=== PATIENT | female | born 1960 | race Caucasian/White ===

== ENCOUNTER → 2018-10-28 | Outpatient (CLI) | payer OTHER | END | disposition home or self-care (01) | LOC: RAH 13:23 | PROVIDERS: ATTEND Family Medicine | DX: Z12.31 Encounter for screening mammogram for malignant neoplasm of breast (principal) | CPT/HCPCS: 77067 ==

== ENCOUNTER 2019-03-17 19:38 | Emergency (ER) | payer OTHER ==
[2019-03-17] MEDS ORDERED: MORPHINE SULFATE 4 MG/1ML SYG ONE (20:55)
[2019-03-17] MEDS ORDERED: KETOROLAC TROMETHAMINE 30MG/ML ONE (20:55)
[2019-03-17 21:10] LABS: BASOPHILS % (AUTO) 1.1 % (0.0-5.0); EOSINOPHILS % (AUTO) 1.9 % (0.0-8.0); HEMATOCRIT 39.4 % (36-48); LYMPHOCYTES % (AUTO) 35.4 % (21.0-51.0); MEAN CORPUSCULAR HEMOGLOBIN 32.2 pg (27.0-33.0); MEAN CORPUSCULAR HGB CONC 34.5 g/dL (32.0-36.0); MEAN CORPUSCULAR VOLUME 93.2 fL (79-99); MONOCYTES % (AUTO) 6.6 % (3.0-13.0); NUCLEATED RED BLOOD CELLS 0.1 % (0.0-0.19); PLATELET COUNT (AUTO) 194 K/uL (130-400); RED BLOOD CELL COUNT(AUTO) 4.23 MIL/uL (4.00-5.50); RED CELL DISTRIBUTION WIDTH 13.9 % (11.0-15.5); WHITE BLOOD COUNT (AUTO) 7.7 K/uL (4.8-10.8)
[2019-03-17 21:25] LABS: POTASSIUM 3.7 mmol/L (3.5-5.1)
[2019-03-17 21:30] LABS: ALBUMIN 3.4 g/dL (3.5-5.0); BILIRUBIN,TOTAL 0.6 mg/dL (0.2-1.0); TOTAL PROTEIN, SERUM 7.5 g/dL (6.0-8.3)
[2019-03-17 21:49] LABS: APPEARANCE,URINE Clear (CLEAR); BILIRUBIN,URINE Negative (NEGATIVE); COLOR,URINE Yellow (YELLOW); GLUCOSE, URINE (UA) Negative (NEGATIVE); KETONES,URINE Negative (NEGATIVE); LEUKOCYTE ESTERASE ,URINE Negative (NEGATIVE); NITRATE,URINE Negative (NEGATIVE); OCCULT BLOOD,URINE Large (NEGATIVE); PROTEIN,URINE Negative (NEGATIVE); UROBILINOGEN,URINE 0.2 mg/dL (0.2-1.0)
[2019-03-17 21:57] LABS: BACTERIA,URINE Few /HPF (None Seen); WBC,URINE 0-1 /HPF (0-1)
[2019-03-17 21:58] LABS: MUCUS,URINE None Seen LPF (None Seen)
== END 2019-03-17 22:38 | disposition home or self-care (01) ==
LOC: EDH 19:38
DX: S39.012A Strain of muscle, fascia and tendon of lower back, initial encounter (principal); I10 Essential (primary) hypertension; E78.00 Pure hypercholesterolemia, unspecified; K74.60 Unspecified cirrhosis of liver; Z90.49 Acquired absence of other specified parts of digestive tract; Z90.710 Acquired absence of both cervix and uterus; Z87.891 Personal history of nicotine dependence; X58.XXXA Exposure to other specified factors, initial encounter; Y93.89 Activity, other specified; Y92.89 Other specified places as the place of occurrence of the external cause; Y99.8 Other external cause status
CPT/HCPCS: 36415; 72125; 72128; 72131; 74176; 80053; 81001; 83690; 84484; 85025; 93005; 96374; 96375; 99285; J1885; J2270

== ENCOUNTER 2021-10-14 19:46 | Emergency (ER) | payer OTHER ==
[~2021-10-14] VITALS: Ht 154.9 cm; Wt 53.1 kg
[2021-10-14] MEDS ORDERED: KETOROLAC 30MG VIAL (30MG/ML) IM ONE (21:00)
[2021-10-14 23:24] VITALS: BP 149/65
== END 2021-10-14 23:38 | disposition home or self-care (01) ==
LOC: EDH 19:46
DX: S33.5XXA Sprain of ligaments of lumbar spine, initial encounter (principal); S40.011A Contusion of right shoulder, initial encounter; S80.01XA Contusion of right knee, initial encounter; S09.90XA Unspecified injury of head, initial encounter; I10 Essential (primary) hypertension; Z79.1 Long term (current) use of non-steroidal anti-inflammatories (NSAID); W18.39XA Other fall on same level, initial encounter; Y93.89 Activity, other specified; Y92.89 Other specified places as the place of occurrence of the external cause; Y99.8 Other external cause status
CPT/HCPCS: 70450; 72100; 73030; 73562; 96372; 99284; J1885

== ENCOUNTER 2022-12-10 15:34 | Emergency (ER) | payer BC, OTHER ==
[~2022-12-10] VITALS: Ht 154.9 cm; Wt 59.4 kg
[2022-12-10] MEDS ORDERED: KETOROLAC 30MG VIAL (30MG/ML) IVP ONE (16:30)
[2022-12-10] MEDS ORDERED: METOCLOPRAMIDE 10 MG/2 ML VIAL IVP ONE (16:30)
[2022-12-10] MEDS ORDERED: FAMOTIDINE 20MG VIAL IV ONE (16:30)
[2022-12-10] MEDS ORDERED: 0.9%NACL 1000ML 1,000 ML IV ONE (17:30)
[2022-12-10 17:37] LABS: BASOPHILS % (AUTO) 0.8 % (0.0-5.0); EOSINOPHILS % (AUTO) 1.1 % (0.0-8.0); HEMATOCRIT 33.1 % (36-48); LYMPHOCYTES % (AUTO) 26.6 % (21.0-51.0); MEAN CORPUSCULAR HEMOGLOBIN 29.1 pg (27.0-33.0); MEAN CORPUSCULAR HGB CONC 31.4 g/dL (32.0-36.0); MEAN CORPUSCULAR VOLUME 92.7 fL (79-99); MONOCYTES % (AUTO) 8.4 % (3.0-13.0); NEUTROPHILS % (AUTO) 62.6 % (40.0-77.0); PLATELET COUNT (AUTO) 234 K/uL (130-400); RED BLOOD CELL COUNT(AUTO) 3.57 MIL/uL (4.00-5.50); RED CELL DISTRIBUTION WIDTH 13.5 % (11.0-15.5); WHITE BLOOD COUNT (AUTO) 6.5 K/uL (4.8-10.8)
[2022-12-10 17:57] LABS: POTASSIUM 3.6 mmol/L (3.5-5.1)
[2022-12-10 18:06] LABS: ALBUMIN 2.4 g/dL (3.5-5.0); TOTAL PROTEIN, SERUM 7.1 g/dL (6.0-8.3)
[2022-12-10] MEDS ORDERED: MELO-106 PO (18:55)
[2022-12-10 19:53] VITALS: BP 146/64; PULSE 74; RESP 16
== END 2022-12-10 20:01 | disposition home or self-care (01) ==
LOC: EDH 15:34
DX: S46.911A Strain of unspecified muscle, fascia and tendon at shoulder and upper arm level, right arm, initial encounter (principal); F32.A Depression, unspecified; E78.00 Pure hypercholesterolemia, unspecified; Z90.49 Acquired absence of other specified parts of digestive tract; I10 Essential (primary) hypertension; W18.39XA Other fall on same level, initial encounter; Y93.89 Activity, other specified; Y92.89 Other specified places as the place of occurrence of the external cause; Y99.8 Other external cause status
CPT/HCPCS: 99285; 70450; 96374; 71045; 96375; 96361; 82550; 84484; 80053; 85025; 36415; 72170; 73030; 72125; 70486; J3490; J7030; J1885; J2765

== ENCOUNTER 2022-12-31 12:30 | Emergency (ER) | payer BC ==
[~2022-12-31] VITALS: Ht 154.9 cm; Wt 68.0 kg
[~2022-12-31 12:30] MED LIST: MELO-106 PO
[2022-12-31 13:55] LABS: BASOPHILS # (AUTO) 0.04 K/uL (0.00-0.20); BASOPHILS % (AUTO) 0.8 % (0.0-5.0); EOSINOPHILS # (AUTO) 0.18 K/uL (0.00-0.70); EOSINOPHILS % (AUTO) 3.8 % (0.0-8.0); IMMATURE GRANULOCYTE ABSOLUTE 0.01 K/uL (0-1); LYMPHOCYTES # (AUTO) 1.8 K/uL (1.0-4.8); LYMPHOCYTES % (AUTO) 38.5 % (21.0-51.0); MEAN CORPUSCULAR HEMOGLOBIN 29.4 pg (27.0-33.0); MEAN CORPUSCULAR HGB CONC 31.6 g/dL (32.0-36.0); MONOCYTES # (AUTO) 0.4 K/uL (0.1-1.0); MONOCYTES % (AUTO) 8.2 % (3.0-13.0); NEUTROPHILS # (AUTO) 2.3 K/uL (1.8-7.7); NEUTROPHILS % (AUTO) 48.5 % (40.0-77.0); PLATELET COUNT (AUTO) 140 K/uL (130-400); RED BLOOD CELL COUNT(AUTO) 3.44 MIL/uL (4.00-5.50); RED CELL DISTRIBUTION WIDTH 14.4 % (11.0-15.5); WHITE BLOOD COUNT (AUTO) 4.8 K/uL (4.8-10.8)
[2022-12-31 14:01] LABS: CREATININE 0.9 mg/dL (0.5-1.5); POTASSIUM 3.4 mmol/L (3.5-5.1)
[2022-12-31 14:06] LABS: ALBUMIN 3.1 g/dL (3.5-5.0); BILIRUBIN,TOTAL 0.5 mg/dL (0.2-1.0); TOTAL PROTEIN, SERUM 6.8 g/dL (6.0-8.3)
[2022-12-31 14:25] LABS: B-TYPE NATRIURETIC PEPTIDE 63 pg/mL (0-100)
[2022-12-31 15:00] LABS: ADD UA MICROSCOPIC YES; APPEARANCE,URINE CLEAR (CLEAR); BILIRUBIN,URINE NEGATIVE (NEGATIVE); COLOR,URINE LIGHT-YELLOW (YELLOW); GLUCOSE, URINE (UA) NEGATIVE (NEGATIVE); KETONES,URINE NEGATIVE (NEGATIVE); LEUKOCYTE ESTERASE ,URINE NEGATIVE Leu/uL (NEGATIVE); NITRATE,URINE NEGATIVE (NEGATIVE); OCCULT BLOOD,URINE NEGATIVE (NEGATIVE); PH,URINE 6.5 (5.0-8.0); PROTEIN,URINE 10 mg/dL (NEGATIVE); UROBILINOGEN,URINE 0.2 mg/dL (0.2-1.0)
[2022-12-31 15:01] LABS: MUCUS,URINE RARE LPF (None Seen); SQUAMOUS EPITHELIAL CELL,UR RARE /HPF (0-2)
[2022-12-31] MEDS ORDERED: FUROSEMIDE 20 MG TABLET PO ONE (15:40)
[2022-12-31] MEDS ORDERED: KCL 20 MEQ ERTAB PO ONE (15:40)
[2022-12-31] MEDS ORDERED: FURO20TA4 PO (17:15)
[2022-12-31] MEDS ORDERED: POTA-202 PO (17:15)
[2022-12-31 17:25] VITALS: BP 144/46; PULSE 66; RESP 18; O2SAT 96
== END 2022-12-31 17:26 | disposition home or self-care (01) ==
LOC: EDH 12:30
DX: E87.6 Hypokalemia (principal); M79.89 Other specified soft tissue disorders; F17.200 Nicotine dependence, unspecified, uncomplicated; Z79.1 Long term (current) use of non-steroidal anti-inflammatories (NSAID); Z90.49 Acquired absence of other specified parts of digestive tract
CPT/HCPCS: 36415; 71045; 80053; 81001; 83880; 84484; 85025; 93005; 93970

== ENCOUNTER 2023-04-03 23:21 | Emergency (ER) | payer BC, OTHER ==
[~2023-04-03] VITALS: Ht 154.9 cm; Wt 63.5 kg
[~2023-04-03 23:21] MED LIST changes: +FURO20TA4 PO; +POTA-202 PO
[2023-04-04] MEDS ORDERED: BENZONATATE 100 MG CAPSULE PO ONE (02:00)
[2023-04-04] MEDS ORDERED: LACTATED RINGERS 1000ML 1,000 ML IV ONE (02:00)
[2023-04-04] MEDS ORDERED: ALBUTEROL 0.083% 2.5 MG/3 ML INH IH ONE (02:00)
[2023-04-04 02:06] VITALS: PULSE 77
[2023-04-04 03:01] LABS: RAPID GROUP A STREP negative (NEGATIVE)
[2023-04-04 03:06] LABS: BASOPHILS # (AUTO) 0.03 K/uL (0.00-0.20); BASOPHILS % (AUTO) 0.3 % (0.0-5.0); EOSINOPHILS # (AUTO) 0.02 K/uL (0.00-0.70); EOSINOPHILS % (AUTO) 0.2 % (0.0-8.0); HEMATOCRIT 33.1 % (36-48); IMMATURE GRANULOCYTE ABSOLUTE 0.19 K/uL (0-1); LYMPHOCYTES # (AUTO) 2.2 K/uL (1.0-4.8); LYMPHOCYTES % (AUTO) 20.9 % (21.0-51.0); MEAN CORPUSCULAR HGB CONC 33.2 g/dL (32.0-36.0); MEAN CORPUSCULAR VOLUME 90.2 fL (79-99); MONOCYTES # (AUTO) 1.1 K/uL (0.1-1.0); MONOCYTES % (AUTO) 10.5 % (3.0-13.0); NEUTROPHILS # (AUTO) 6.9 K/uL (1.8-7.7); NEUTROPHILS % (AUTO) 66.3 % (40.0-77.0); PLATELET COUNT (AUTO) 261 K/uL (130-400); RED BLOOD CELL COUNT(AUTO) 3.67 MIL/uL (4.00-5.50); RED CELL DISTRIBUTION WIDTH 14.3 % (11.0-15.5); WHITE BLOOD COUNT (AUTO) 10.5 K/uL (4.8-10.8)
[2023-04-04 03:07] LABS: SARS-CoV-2, RNA, NAAT NEGATIVE SARS CoV-2 (NEGATIVE)
[2023-04-04 03:08] LABS: APPEARANCE,URINE CLOUDY (CLEAR); BILIRUBIN,URINE NEGATIVE (NEGATIVE); COLOR,URINE LIGHT-YELLOW (YELLOW); GLUCOSE, URINE (UA) NEGATIVE (NEGATIVE); KETONES,URINE NEGATIVE (NEGATIVE); LEUKOCYTE ESTERASE ,URINE 250 Leu/uL (NEGATIVE); NITRATE,URINE 2+ (NEGATIVE); OCCULT BLOOD,URINE SMALL (NEGATIVE); PH,URINE 5.5 (5.0-8.0); PROTEIN,URINE 30 mg/dL (NEGATIVE); UROBILINOGEN,URINE 0.2 mg/dL (0.2-1.0)
[2023-04-04 03:09] LABS: ADD UA MICROSCOPIC YES
[2023-04-04 03:11] LABS: BACTERIA,URINE MANY /HPF (None Seen); MUCUS,URINE RARE LPF (None Seen); SQUAMOUS EPITHELIAL CELL,UR RARE /HPF (0-2); WBC,URINE 51-100 /HPF (0-1)
[2023-04-04 03:11] LABS: INFLUENZA TYPE A Negative For Type A (NEGATIVE); INFLUENZA TYPE B Negative For Type B (NEGATIVE)
[2023-04-04 03:28] LABS: ALBUMIN 2.4 g/dL (3.5-5.0); BILIRUBIN,TOTAL 0.4 mg/dL (0.2-1.0); TOTAL PROTEIN, SERUM 6.5 g/dL (6.0-8.3)
[2023-04-04 03:29] LABS: POTASSIUM 2.7 mmol/L (3.5-5.1)
[2023-04-04] MEDS ORDERED: ACETAMINOPHEN 325 MG TAB PO ONE (03:30)
[2023-04-04 03:32] LABS: INR 1.07 (0.85-1.15); PROTHROMBIN TIME 12.4 SEC (9.6-11.6)
[2023-04-04 03:34] LABS: PARTIAL THROMBOPLASTIN TIME 29.7 SEC (26.3-35.5)
[2023-04-04] MEDS ORDERED: POTASSIUM BICARB/CIT AC 25 MEQ TABLET.EFF PO ONE (04:00)
[2023-04-04] MEDS ORDERED: CEFTRIAXONE 2GM VIAL IVPB ONE (04:00)
[2023-04-04 04:04] VITALS: TEMP 99.1
[2023-04-04 04:47] LABS: MAGNESIUM 1.8 mg/dL (1.80-2.40); THYROID STIMULATING HORMONE 0.46 uIU/mL (0.36-3.74)
[2023-04-04 06:00] VITALS: BP 135/44
[2023-04-04 06:03] LABS: POTASSIUM 3.2 mmol/L (3.5-5.1)
[2023-04-04 06:06] VITALS: PULSE 90; RESP 18; O2SAT 99
[2023-04-04] MEDS ORDERED: PHEN-847 PO (06:09)
[2023-04-04] MEDS ORDERED: BENZ-39 PO (06:09)
[2023-04-04] MEDS ORDERED: ALBUHFA IH (06:09)
[2023-04-04] MEDS ORDERED: CEPH500B PO (06:09)
[2023-04-04] MEDS ORDERED: AUD IH (06:09)
== END 2023-04-04 06:30 | disposition home or self-care (01) ==
LOC: EDH 23:21
DX: N39.0 Urinary tract infection, site not specified (principal); B34.9 Viral infection, unspecified; J40 Bronchitis, not specified as acute or chronic; E87.6 Hypokalemia; I10 Essential (primary) hypertension; M19.90 Unspecified osteoarthritis, unspecified site; F17.200 Nicotine dependence, unspecified, uncomplicated; Z79.1 Long term (current) use of non-steroidal anti-inflammatories (NSAID); Z79.899 Other long term (current) drug therapy; Z20.822 Contact with and (suspected) exposure to COVID-19
CPT/HCPCS: 99284; 87635; 84443; 82550; 83735; 84484; 80053; 83690; 85025; 85610; 85730; 87040 ×2; 87077 ×2; 87088; 87186 ×2; 87880; 87804 ×2; 83605; 81001; 36415; 71045; 93005; 80048; C9803; J7120; J0696

== ENCOUNTER 2023-07-07 12:04 | Emergency (ER) | payer OTHER ==
[~2023-07-07] VITALS: Ht 152.4 cm; Wt 64.9 kg
[~2023-07-07 12:04] MED LIST changes: +ALBUHFA IH; +AUD IH; +BENZ-39 PO; +CEPH500B PO; +PHEN-847 PO
[2023-07-07] MEDS ORDERED: M-SA237L TP (15:43)
[2023-07-07] MEDS ORDERED: IBUP-2070 PO (15:43)
[2023-07-07 16:26] VITALS: BP 168/62; PULSE 78; RESP 18; O2SAT 100
[2023-07-07] MEDS: KETOROLAC 30MG VIAL (30MG/ML) IM ONE (16:29)
== END 2023-07-07 16:39 | disposition home or self-care (01) ==
LOC: EDH 12:04
DX: S80.211A Abrasion, right knee, initial encounter (principal); S80.01XA Contusion of right knee, initial encounter; S20.211A Contusion of right front wall of thorax, initial encounter; M17.11 Unilateral primary osteoarthritis, right knee; M19.90 Unspecified osteoarthritis, unspecified site; J45.909 Unspecified asthma, uncomplicated; E78.00 Pure hypercholesterolemia, unspecified; I10 Essential (primary) hypertension; Z90.49 Acquired absence of other specified parts of digestive tract; W18.39XA Other fall on same level, initial encounter; Y93.89 Activity, other specified; Y92.89 Other specified places as the place of occurrence of the external cause; Y99.8 Other external cause status
CPT/HCPCS: 99283; 71045; 73560; 96372; J1885

== ENCOUNTER 2024-02-04 15:05 | Emergency (ER) | payer OTHER ==
[~2024-02-04] VITALS: Ht 162.6 cm; Wt 66.2 kg
[~2024-02-04 15:05] MED LIST changes: +IBUP-2070 PO; +M-SA237L TP
[2024-02-04] MEDS: ketOROlac 60 MG VIAL (30MG/ML) IM ONE (16:22)
[2024-02-04 16:44] LABS: HEMATOCRIT 34.1 % (36-48); MEAN CORPUSCULAR HEMOGLOBIN 29.5 pg (27.0-33.0); MEAN CORPUSCULAR HGB CONC 32.3 g/dL (32.0-36.0); MEAN CORPUSCULAR VOLUME 91.4 fL (79-99); PLATELET COUNT (AUTO) 194 K/uL (130-400); RED BLOOD CELL COUNT(AUTO) 3.73 MIL/uL (4.00-5.50); RED CELL DISTRIBUTION WIDTH 13.4 % (11.0-15.5); WHITE BLOOD COUNT (AUTO) 5.7 K/uL (4.8-10.8)
[2024-02-04 16:48] LABS: BASOPHILS # (AUTO) 0.06 K/uL (0.00-0.20); BASOPHILS % (AUTO) 1.1 % (0.0-5.0); EOSINOPHILS # (AUTO) 0.12 K/uL (0.00-0.70); EOSINOPHILS % (AUTO) 2.2 % (0.0-8.0); IMMATURE GRANULOCYTE ABSOLUTE 0.01 K/uL (0-1); LYMPHOCYTES # (AUTO) 1.8 K/uL (1.0-4.8); LYMPHOCYTES % (AUTO) 32.6 % (21.0-51.0); MONOCYTES # (AUTO) 0.4 K/uL (0.1-1.0); MONOCYTES % (AUTO) 7.7 % (3.0-13.0); NEUTROPHILS # (AUTO) 3.1 K/uL (1.8-7.7); NEUTROPHILS % (AUTO) 56.2 % (40.0-77.0)
[2024-02-04 16:50] LABS: CREATININE 0.9 mg/dL (0.5-1.0); POTASSIUM 3.1 mmol/L (3.5-5.1)
[2024-02-04 17:26] VITALS: BP 131/70; PULSE 74; RESP 18; TEMP 98.1; O2SAT 97
[2024-02-04] MEDS: KCL 20 MEQ ERTAB PO ONE (17:38)
[2024-02-04] MEDS ORDERED: MELO-106 PO (17:48)
== END 2024-02-04 18:05 | disposition home or self-care (01) ==
LOC: EDH 15:05
DX: M25.552 Pain in left hip (principal); M25.562 Pain in left knee; E87.6 Hypokalemia; R00.1 Bradycardia, unspecified; M17.0 Bilateral primary osteoarthritis of knee; W18.39XA Other fall on same level, initial encounter; Y93.89 Activity, other specified; Y92.89 Other specified places as the place of occurrence of the external cause; Y99.8 Other external cause status
CPT/HCPCS: 99283; 80048; 85025; 82948; 36415; 73565; 72170; 96372; 93005; J1885; 73560

== ENCOUNTER 2024-04-08 12:08 | Emergency (ER) | payer OTHER ==
[~2024-04-08] VITALS: Ht 152.4 cm; Wt 55.3 kg
[2024-04-08] MEDS: HYDROcodone/APAP 5/325 1 TAB TABLET PO ONE (12:59)
[2024-04-08] MEDS: ibuPROFEN 600 MG TABLET PO ONE (12:59)
--- NOTE | 2024-04-08 13:42 | ERN ---
General Chief Complaint: Knee Injury/Swelling Stated Complaint: FELL 2X, RIGHT LEG SWELLING, LEFT LEG PAIN Time Seen by MD: 12:10 History of Present Illness Initial Comments 64-year-old female presents for right knee pain and right hip pain after a mechanical fall. Patient reports she tripped while walking to the store. She uses walker. She landed on her right knee. She reports right knee pain and also right hip pain. She is ambulatory although she has not antalgic gait. There is some swelling to the knee. She denies hitting her head or any other injuries. Medical history: Hypertension, neuropathy, anxiety and depression Smoker PCP: [facility] Allergies: Coded Allergies: meloxicam (Unverified Allergy, Unknown, 02/04/24) Home Meds Active Scripts Meloxicam (Meloxicam) 7.5 Mg Tablet, 7.5 MG PO AM for 30 Days, #30 TAB Prov:JULIANA BOO MD 02/04/24 Ibuprofen (Ibuprofen) 600 Mg Tablet, 600 MG PO TID PRN for PAIN, #12 TAB Prov:TOMY JIMÉNEZ 07/07/23 M-Salicy/Aloe Vera/Men/Euc Oil ([place] Aloe Analgesic Liniment) 10 % Liniment, 1 APPL TP BID PRN for MILD PAIN, #237 ML apply to muscles and joints of lower legs as directed Prov:TOMY JIMÉNEZ 07/07/23 Phenazopyridine HCl (Pyridium) 200 Mg Tab, 200 MG PO TIDPC, #6 TAB 0 Refills TAKE WITH FOOD TO PREVENT STOMACH UPSET. Prov:MARY GARCIA Sr., MD 04/04/23 Cephalexin Monohydrate (Keflex) 500 Mg Cap, 500 MG PO QID for 7 Days, #28 CAP 0 Refills Prov:MARY GARCIA Sr., MD 04/04/23 Benzonatate (Tessalon Perles) 100 Mg Cap, 100 MG PO TID for cough, #30 CAP 0 Refills Prov:MARY GARCIA Sr., MD 04/04/23 Albuterol Sulfate (Ventolin Hfa/Proventil Hfa/Proair Hfa) 90 Mcg Puff, 2 PUFF IH Q4H for WHEEZING, #1 INHALER 0 Refills Prov:MARY GARCIA Sr., MD 04/04/23 Albuterol Sulfate (Albuterol Sulfate) 2.5 Mg/0.5 Ml Vial.neb, 2.5 MG IH Q6H for wheezing/sob, #20 INH 0 Refills Prov:MARY GARCIA Sr., MD 04/04/23 Potassium Chloride (Potassium Chloride) 20 Meq Tab.er.prt, 20 MEQ PO DAILY, #5 TAB Prov:DEN WALKER MD 12/31/22 Furosemide (Furosemide) 20 Mg Tablet, 20 MG PO DAILY for swelling in legs, #5 TAB Prov:DEN WALKER MD 12/31/22 Meloxicam (Meloxicam) 7.5 Mg Tablet, 7.5 MG PO DAILY, #30 TAB 2 Refills Prov:MARY GARCIA Sr., MD 12/10/22 Past Medical History Past Medical History: Hypertension Medical History Other: NEUROPATHY Past Surgical History: None Surgical History Other: KNEE SX Social History Social History: Smokers, Other ROS Dictation CONSTITUTIONAL: No chills, no fever, no weakness, no diaphoresis, no malaise. HEAD/FACE: No signs of trauma. EENT: No eye pain, no blurred vision, no tearing, no double vision, no ear pain, no ear discharge, no nose pain, no nasal congestion, no throat pain, no throat swelling, no mouth pain. RESPIRATORY: No cough, no orthopnea, no SOB, no stridor, no wheezing. CARDIOVASCULAR: No chest pain, no edema, no palpitations, no syncope. GASTROINTESTINAL/ABDOMINAL: No abdominal pain, no constipation, no diarrhea, no nausea, no vomiting. GENITOURINARY: No abnormal discharge, no dysuria, no frequent urination, no hematuria. No complaints of pain in the genitals. MUSCULOSKELETAL: Right knee pain INTEGUMENTARY: No change in color, no change in hair/nails, no dryness, no lesion, no lumps, no rash. NEUROLOGICAL/PSYCH: No anxiety, not depressed, no emotional problem, no headache, no numbness, no pre-existing deficit, no history of seizures, no tremors, no weakness. HEMATOLOGIC/LYMPHATIC: Not anemic, no history of blood clots, no apparent bleeding, no bruising, glands not swollen. All Systems Negative, Except as Noted. Physical Exam Physical Exam Dictation VITAL SIGNS: Reviewed. GENERAL APPEARANCE: Alert, oriented x3, no acute distress, obese. HEAD AND FACE: Non-traumatic. EYES: PERRL, pink conjunctivas, eyelid no trauma, anterior chamber clear. EARS: Pinnas intact and no signs of trauma or erythema. Ear canals clear and no discharge. TMs no erythema. NOSE: No discharge, no bleeding. OROPHARYNX: Mouth normal, teeth no caries, tongue pink. Pharynx clear, no erythema. Tonsils no exudates, no abscesses noted. Mucous membrane moist. NECK: Supple, non-tender, no thyromegaly, no masses, no JVD, no bruits. BREAST: Deferred. CHEST: No tenderness, no crepitus, no paradoxical movement, no retractions. LUNGS: Clear, well-ventilated, symmetric, no rales, no wheezing, no rhonchi, no stridor, good breath sounds bilaterally. HEART: Regular rate, regular rhythm, no murmur, no gallops. VASCULAR: No peripheral edema. ABDOMEN: Soft, positive bowel sounds, nondistended, no guarding, nontender, no rebound, no masses no hepatomegaly, no splenomegaly, no Monahan's sign, no hernias. RECTAL: Deferred. GENITAL: Deferred. NEUROLOGICAL: Normal speech, gross motor function intact, gross sensory funct ion intact. MUSCULOSKELETAL: Right knee swelling, full range of motion, neurovascularly intact distally, ambulatory with antalgic gait EXTREMITIES: Nontender, full range of motion. SKIN: Color pink, dry, no turgor, no rash, no lacerations, no abrasions, no contusions. LYMPHATICS: Deferred. MDM CC: R knee pain, hip pain s/p fall Comorbidities: uses a walker, neuropathy, anxiety Ddx: fracutre, MSK pain No labs indicated. NV intact. Ambulatory with antalgic gait. Uses a walker. Able to walk around the ER. Right knee x-ray (independently interpreted by me): no acute fractures, DJD. Pelvis x-ray (independently interpreted by me): no acute fractures, DJD. Treatment in ED: PO ibuprofen & [place]. Pain improved. Likely MSK pain. Will DC w/ RICE, ibuprofne, tylenol. AMY wrap. PCP f/u. ED Course Orders Procedure Category Date Status Time Knee 3vws Rt RAD 04/08/24 Resulted 12:39 Hip Unilat 2-3vw Right RAD 04/08/24 Resulted 12:39 Hydrocodone/Apap PHA 04/08/24 Complete 5/325 ([place] 5/325mg) 13:00 Ibuprofen 600 Mg PHA 04/08/24 Complete Tablet (Motrin) 13:00 Current Medications Medications (Trade) Dose Ordered Sig/Romy Route PRN Reason Start Time Stop Time Status Last Admin Dose Admin Acetaminophen/ Hydrocodone Bitart (NORco 5/325MG) 1 tab ONCE ONCE PO 04/08/24 13:00 04/08/24 13:01 DC 04/08/24 12:59 Ibuprofen (moTRIN) 600 mg ONCE ONCE PO 04/08/24 13:00 04/08/24 13:01 DC 04/08/24 12:59 Vital Signs Date Time Temp Pulse Resp B/P (MAP) Pulse Ox O2 Delivery O2 Flow Rate FiO2 04/08/24 12:28 97.9 85 20 162/68 95 Room Air DX & DISP Disposition: Discharge Departure Impression: Primary Impression: Right knee injury Condition: Stable Scripts Acetaminophen (Acetaminophen Extra Strength) 500 Mg Tablet 1000 MG PO QID for pain, #20 TAB Prov: INDY GOOD DO 04/08/24 Ibuprofen (Ibuprofen) 600 Mg Tablet 1 TAB PO TID for pain for 10 Days, #30 TAB 0 Refills with food Prov: INDY GOOD DO 04/08/24 Additional Instructions: The x-rays do not show any fractures. You do have some degenerative disease (age related arthritis) on your knee x-ray. Your pelvis x-ray is unremarkable. You likely have musculoskeletal or soft tissue injury from the fall. Please continue with all your home medications. For pain you can alternate 600 mg of ibuprofen or 1000 mg of Tylenol every 4 hours as needed. I also recommend that you rest the knee as much as possible. Apply ice for 20 minutes twice per day. Use a compression device such as a knee brace or an Amy wrap. Elevate your knee as much as possible. Please follow up with your primary doctor. You may need further studies or treatment. Please refer to the emergency department if you have any concerns. Referrals: SELF,REFERRAL (PCP) INDY GOOD DO Apr 08, 2024 13:41
--- NOTE | 2024-04-08 15:17 | HMCIMG ---
HIP UNILAT 2-3VW RIGHT REASON: fall COMPARISON: None TECHNIQUE: 3 views were obtained of the pelvis and right hip. FINDINGS: Bones of the pelvis appear normal. There are no fractures. SI joints appear normal as do hip joint spaces. Proximal femur appears normal as well. Soft tissues are unremarkable. IMPRESSION: 1. Normal views of the pelvis and right hip.
--- NOTE | 2024-04-08 15:18 | HMCIMG ---
KNEE 3VWS RT REASON: fall TECHNIQUE: 3 views were obtained. FINDINGS: There is severe lateral joint space osteoarthritis. Medial and patellofemoral joint spaces appear better preserved. There are no fractures. Soft tissues appear unremarkable. IMPRESSION: 1. Severe lateral joint space osteoarthritis with mild valgus angulation.
[2024-04-08] MEDS ORDERED: ACET-2123 PO (15:23)
[2024-04-08] MEDS ORDERED: IBUP-2070 PO (15:23)
[2024-04-08 15:28] VITALS: BP 148/78; PULSE 78; RESP 18; TEMP 97.9; O2SAT 96
[2024-04-08] MEDS ORDERED: ACET-2079 PO (15:51)
== END 2024-04-08 15:56 | disposition home or self-care (01) ==
LOC: EDH 12:08
DX: S89.81XA Other specified injuries of right lower leg, initial encounter (principal); M25.551 Pain in right hip; G62.9 Polyneuropathy, unspecified; F41.9 Anxiety disorder, unspecified; I10 Essential (primary) hypertension; F17.200 Nicotine dependence, unspecified, uncomplicated; Z79.1 Long term (current) use of non-steroidal anti-inflammatories (NSAID); Z79.899 Other long term (current) drug therapy; Z88.8 Allergy status to other drugs, medicaments and biological substances; W01.0XXA Fall on same level from slipping, tripping and stumbling without subsequent striking against object, initial encounter; Y93.01 Activity, walking, marching and hiking; Y92.89 Other specified places as the place of occurrence of the external cause; Y99.8 Other external cause status
CPT/HCPCS: 73502; 73562; 99283

== ENCOUNTER → 2024-09-09 | Outpatient (CLI) | payer OTHER ==
[~2024-09-09] MED LIST changes: +ACET-2079 PO; +ACET-2123 PO
== END | disposition home or self-care (01) ==
LOC: RAH 15:12
PROVIDERS: ATTEND Physician Assistant
DX: Z12.31 Encounter for screening mammogram for malignant neoplasm of breast (principal)
CPT/HCPCS: 77067

== ENCOUNTER 2024-09-11 14:51 | Emergency (ER) | payer OTHER ==
[~2024-09-11] VITALS: Ht 152.4 cm; Wt 83.9 kg
[2024-09-11] MEDS: morPHINE 2 MG SYG IM ONE (15:48)
[2024-09-11 16:04] VITALS: BP 140/56; PULSE 74; RESP 16; TEMP 98.3; O2SAT 100
--- NOTE | 2024-09-11 16:23 | ERN ---
General Chief Complaint: Knee Injury/Swelling Stated Complaint: RT KNEE PAIN/ ARTHRITIS Time Seen by MD: 14:57 Time Seen by Midlevel: 14:57 Source: patient History of Present Illness Initial Comments The patient is a 64-year-old female presenting to the emergency department for evaluation of right knee pain. She reports chronic knee pain and has been told she has extensive osteoarthritis of the right knee. She states it was [id number] and needs surgery. Today she was requesting to be admitted so we can performed surgery on her. Denies any other symptoms. Denies any fall. Allergies: Coded Allergies: meloxicam (Unverified Allergy, Unknown, 02/04/24) Home Meds Active Scripts Acetaminophen with Codeine (Acetaminophen-Cod #3 Tablet) 300 Mg-30 Mg Tablet, 1 TAB PO Q6HPRN PRN for pain for 5 Days, #20 TAB 0 Refills Prov:INDY GOOD DO 04/08/24 Acetaminophen (Acetaminophen Extra Strength) 500 Mg Tablet, 1000 MG PO QID for pain, #20 TAB Prov:INDY GOOD DO 04/08/24 Ibuprofen (Ibuprofen) 600 Mg Tablet, 1 TAB PO TID for pain for 10 Days, #30 TAB 0 Refills with food Prov:INDY GOOD DO 04/08/24 Meloxicam (Meloxicam) 7.5 Mg Tablet, 7.5 MG PO AM for 30 Days, #30 TAB Prov:JULIANA BOO MD 02/04/24 Ibuprofen (Ibuprofen) 600 Mg Tablet, 600 MG PO TID PRN for PAIN, #12 TAB Prov:TOMY JIMÉNEZ 07/07/23 M-Salicy/Aloe Vera/Men/Euc Oil ([place] Aloe Analgesic Liniment) 10 % Liniment, 1 APPL TP BID PRN for MILD PAIN, #237 ML apply to muscles and joints of lower legs as directed Prov:TOMY JIMÉNEZ 07/07/23 Phenazopyridine HCl (Pyridium) 200 Mg Tab, 200 MG PO TIDPC, #6 TAB 0 Refills TAKE WITH FOOD TO PREVENT STOMACH UPSET. Prov:MARY GARCIA Sr., MD 04/04/23 Cephalexin Monohydrate (Keflex) 500 Mg Cap, 500 MG PO QID for 7 Days, #28 CAP 0 Refills Prov:MARY GARCIA Sr., MD 04/04/23 Benzonatate (Tessalon Perles) 100 Mg Cap, 100 MG PO TID for cough, #30 CAP 0 Refills Prov:MARY GARCIA Sr., MD 04/04/23 Albuterol Sulfate (Ventolin Hfa/Proventil Hfa/Proair Hfa) 90 Mcg Puff, 2 PUFF IH Q4H for WHEEZING, #1 INHALER 0 Refills Prov:MARY GARCIA Sr., MD 04/04/23 Albuterol Sulfate (Albuterol Sulfate) 2.5 Mg/0.5 Ml Vial.neb, 2.5 MG IH Q6H for wheezing/sob, #20 INH 0 Refills Prov:MARY GARCIA Sr., MD 04/04/23 Potassium Chloride (Potassium Chloride) 20 Meq Tab.er.prt, 20 MEQ PO DAILY, #5 TAB Prov:DEN WALKER MD 12/31/22 Furosemide (Furosemide) 20 Mg Tablet, 20 MG PO DAILY for swelling in legs, #5 TAB Prov:DEN WALKER MD 12/31/22 Meloxicam (Meloxicam) 7.5 Mg Tablet, 7.5 MG PO DAILY, #30 TAB 2 Refills Prov:MARY GARCIA Sr., MD 12/10/22 Past Medical History Past Medical History: Arthritis, GERD, Hypertension Medical History Other: PVD Past Surgical History: Unknown Surgical History Other: KNEE SX Social History Social History: Smokers, Other ROS Dictation CONSTITUTIONAL: Negative except for HPI HEAD/FACE: Negative except for HPI EENT: Negative except for HPI RESPIRATORY: Negative except for HPI GASTROINTESTINAL/ABDOMINAL: Negative except for HPI GENITOURINARY: Negative except for HPI MUSCULOSKELETAL: Negative except for HPI INTEGUMENTARY: Negative except for HPI NEUROLOGICAL/PSYCH: Negative except for HPI HEMATOLOGIC/LYMPHATIC: Negative except for HPI All Systems Negative, Except as noted above. 13 point review of systems assessed and all negative except for above. Physical Exam Physical Exam Dictation PHYSICAL EXAM: GENERAL: alert,, awake oriented x 3 HEENT: EOMI, Sclera non icteric, moist mucosa NECK: Supple, no JVD, trachea midline LUNGS: Clear breath sounds bilaterally. No wheezes HEART: Regular rate and rhythm. Normal S1 and S2, without murmurs ABD: Abdomen soft, nontender. Bowel sounds present EXT: No clubbing or cyanosis, NEURO: Alert and oriented to person, follows commands MDM MDM: The patient is a 64-year-old female presenting to the emergency department for evaluation of right knee pain. She reports chronic knee pain and has been told she has extensive osteoarthritis of the right knee. She states it was [id number] and needs surgery. Today she was requesting to be admitted so we can performed surgery on her. Denies any other symptoms. Denies any fall. Initial vital signs are stable. Patient was in no acute distress. She was full range motion of the right knee. No obvious signs of external trauma. An x-ray was ordered which reveals osteoarthritis of the right knee but no acute fracture or dislocation. Patient was put on a knee immobilizer and will be having to follow up outpatient for further evaluation. Differential diagnosis: Fracture, dislocation, contusion, arthritis There are no social concerns with this patient. Prescription drug management Prescriptions will include: Medical management and examination interpretation discussions were had by me with other qualified healthcare professionals as indicated for the patient's care. ED Course Orders Procedure Category Date Status Time Knee 3vws Rt RAD 09/11/24 Taken 15:30 Morphine 2mg Syg PHA 09/11/24 Complete (Morphine 2mg Syg) 15:30 Knee Immobilizer JACKELYN 09/11/24 In Process 15:30 Current Medications Medications (Trade) Dose Ordered Sig/Romy Route PRN Reason Start Time Stop Time Status Last Admin Dose Admin Morphine Sulfate (morPHINE 2MG SYG) 2 mg ONCE ONCE IM 09/11/24 15:30 09/11/24 15:32 DC 09/11/24 15:48 Vital Signs Date Time Temp Pulse Resp B/P (MAP) Pulse Ox O2 Delivery O2 Flow Rate FiO2 09/11/24 16:04 98.2 74 16 140/56 100 Room Air* 0 21 09/11/24 14:55 98.1 78 16 140/59 99 0 DX & DISP Disposition: Discharge Departure Impression: Primary Impression: Osteoarthritis of right knee Condition: Stable Additional Instructions: Follow up with your primary care doctor for further evaluation. You need to see an study specialist outpatient to potentially schedule surgery. Continue with Tylenol as needed for pain. If you need something stronger you will need to follow up with your PCP to obtain a prescription. Referrals: EMILY LEIGH DO (PCP) I have reviewed the case, and I agree with, Diagnosis and Plan I performed the substantive portion of the visit. I have reviewed and personally made and approve the management plan that is documented in the note by myself or the AN. I acknowledge for responsibility for the patient's ma nagement plan. LI GLASGOW Sep 11, 2024 16:23
--- NOTE | 2024-09-11 16:28 | HMCIMG ---
KNEE 3VWS RT INDICATION: r/o fx TECHNIQUE: KNEE 3VWS RT. FINDINGS AND IMPRESSION: No displaced fracture or dislocation is seen. Correlate clinically. There is mild soft tissue swelling Diffuse osteopenia is seen degrading evaluation of the study. Moderate degenerative changes are seen.
== END 2024-09-11 16:44 | disposition home or self-care (01) ==
LOC: EDH 14:51
DX: M17.11 Unilateral primary osteoarthritis, right knee (principal); K21.9 Gastro-esophageal reflux disease without esophagitis; I10 Essential (primary) hypertension; F17.200 Nicotine dependence, unspecified, uncomplicated; Z79.1 Long term (current) use of non-steroidal anti-inflammatories (NSAID); Z79.899 Other long term (current) drug therapy; Z88.8 Allergy status to other drugs, medicaments and biological substances
CPT/HCPCS: 99283; 29505; 73562; 96372; J2270

== ENCOUNTER 2025-03-01 20:14 | Emergency (ER) | payer OTHER ==
[~2025-03-01] VITALS: Ht 152.4 cm; Wt 61.7 kg
[~2025-03-01 20:14] MED LIST changes: +IBUP-1492 PO; -IBUP-2070 PO
[2025-03-01 20:16] VITALS: BP 164/66; PULSE 69; RESP 20; TEMP 98
--- NOTE | 2025-03-01 20:32 | ERN ---
ED Note History of Present Illness Stated Complaint: C/O PAIN TO LEFT KNEE, LEFT HAND, LEFT ELBOW Chief Complaint: Mechanical Fall Time Seen by MD: 20:19 Dictation: PATIENT IS A 65-YEAR-OLD FEMALE HERE WITH PAIN TO HER LEFT ELBOW HER LEFT KNEE IN HER LEFT PALMAR HAND AFTER A FALL THIS AFTERNOON. SHE STATES SHE WAS WORKING IN HER YD WHEN SHE TRIPPED AND FELL ON HER LEFT SIDE. SHE HAS GOT A ABRASIONS TO THE LEFT ELBOW AND LEFT KNEE, LAST TETANUS SHOT IS MORE THAN FIVE YEARS AGO. SHE CONTINUED TO WORK IN HER YD. SHE IS NOT ON ANY BLOOD THINNERS DID NOT HIT HER HEAD NO LOC AND NO TRAUMA ALERT CRITERIA. HER DAUGHTER BROUGHT HER TO THE HOSPITAL AND SHE STATES SHE WILL TAKE AN UBER RIDE HOME. Allergies: Coded Allergies: meloxicam (Unverified Allergy, Unknown, 02/04/24) Home Meds Active Scripts Acetaminophen with Codeine (Acetaminophen-Cod #3 Tablet) 300 Mg-30 Mg Tablet, 1 TAB PO Q6HPRN PRN for pain for 5 Days, #20 TAB 0 Refills Prov:INDY GOOD DO 04/08/24 Acetaminophen (Acetaminophen Extra Strength) 500 Mg Tablet, 1000 MG PO QID for pain, #20 TAB Prov:INDY GOOD DO 04/08/24 Ibuprofen (Ibuprofen) 600 Mg Tablet, 1 TAB PO TID for pain for 10 Days, #30 TAB 0 Refills with food Prov:INDY GOOD DO 04/08/24 Meloxicam (Meloxicam) 7.5 Mg Tablet, 7.5 MG PO AM for 30 Days, #30 TAB Prov:JULIANA BOO MD 02/04/24 Ibuprofen (Ibuprofen) 600 Mg Tablet, 600 MG PO TID PRN for PAIN, #12 TAB Prov:TOMY JIMÉNEZ 07/07/23 M-Salicy/Aloe Vera/Men/Euc Oil ([place] Aloe Analgesic Liniment) 10 % Liniment, 1 APPL TP BID PRN for MILD PAIN, #237 ML apply to muscles and joints of lower legs as directed Prov:TOMY JIMÉNEZ 07/07/23 Phenazopyridine HCl (Pyridium) 200 Mg Tab, 200 MG PO TIDPC, #6 TAB 0 Refills TAKE WITH FOOD TO PREVENT STOMACH UPSET. Prov:MARY GARCIA Sr., MD 04/04/23 Cephalexin Monohydrate (Keflex) 500 Mg Cap, 500 MG PO QID for 7 Days, #28 CAP 0 Refills Prov:MARY GARCIA Sr., MD 04/04/23 Benzonatate (Tessalon Perles) 100 Mg Cap, 100 MG PO TID for cough, #30 CAP 0 Refills Prov:MARY GARCIA Sr., MD 04/04/23 Albuterol Sulfate (Ventolin Hfa/Proventil Hfa/Proair Hfa) 90 Mcg Puff, 2 PUFF IH Q4H for WHEEZING, #1 INHALER 0 Refills Prov:MARY GARCIA Sr., MD 04/04/23 Albuterol Sulfate (Albuterol Sulfate) 2.5 Mg/0.5 Ml Vial.neb, 2.5 MG IH Q6H for wheezing/sob, #20 INH 0 Refills Prov:MARY GARCIA Sr., MD 04/04/23 Potassium Chloride (Potassium Chloride) 20 Meq Tab.er.prt, 20 MEQ PO DAILY, #5 TAB Prov:DEN WALKER MD 12/31/22 Furosemide (Furosemide) 20 Mg Tablet, 20 MG PO DAILY for swelling in legs, #5 TAB Prov:DEN WALKER MD 12/31/22 Meloxicam (Meloxicam) 7.5 Mg Tablet, 7.5 MG PO DAILY, #30 TAB 2 Refills Prov:MARY GARCIA Sr., MD 12/10/22 Past Medical History Past Medical History: Anxiety, Bipolar, Depression Additional Past Medical Hx: PVD Surgical History: Other Surgical History Other: KNEE SX Social History: Smokers, Other History: Not Applicable RN Note Reviewed/Agreed w/PFSH: Yes Review of System Dictation CONSTITUTIONAL: NEGATIVE EXCEPT FOR HPI HEAD/FACE: NEGATIVE EXCEPT FOR HPI EENT: NEGATIVE EXCEPT FOR HPI RESPIRATORY: NEGATIVE EXCEPT FOR HPI GASTROINTESTINAL/ABDOMINAL: NEGATIVE EXCEPT FOR HPI GENITOURINARY: NEGATIVE EXCEPT FOR HPI MUSCULOSKELETAL: NEGATIVE EXCEPT FOR HPI LEFT ELBOW/LEFT KNEE/LEFT HAND AND PALMAR PAIN. INTEGUMENTARY: NEGATIVE EXCEPT FOR HPI ABRASIONS TO LEFT ELBOW POSTERIOR AND LEFT KNEE NEUROLOGICAL/PSYCH: NEGATIVE EXCEPT FOR HPI HEMATOLOGIC/LYMPHATIC: NEGATIVE EXCEPT FOR HPI ALL SYSTEMS NEGATIVE, EXCEPT NOTED ABOVE. 13 POINT REVIEW OF SYSTEMS ASSESSED AND ALL NEGATIVE EXCEPT FOR ABOVE. Initial Vital Sign VS Vital Signs Date Time Temp Pulse Resp B/P (MAP) Pulse Ox O2 Delivery O2 Flow Rate FiO2 03/01/25 20:16 98.1 69 20 164/66 97 Room Air Physical Exam Dictation VITAL SIGNS REVIEWED GENERAL APPEARANCE: ALERT, ORIENTED X 3, MODERATE ACUTE DISTRESS, WELL DEVELOPED, NOURISHED. HEAD AND FACE: NON-TRAUMATIC. EYES: PERRL, PINK CONJUNCTIVAS, EYELID NO TRAUMA, ANTERIOR CHAMBER WITH ARCUS SENILIS. EARS: PINNAS INTACT AND NO SIGNS OF TRAUMA OR ERYTHEMA EAR CANALS CLEAR AND NO DISCHARGE TM NO ERYTHEMA NOSE: NO DISCHARGE, NO BLEEDING. OROPHARYNX: MOUTH NORMAL, TONGUE PINK, PHARYNX CLEAR,NO ERYTHEMA, TONSILS NO EXUDATES, NO ABSCESSES NOTED, MUCOUS MEMBRANE MOIST NECK: SUPPLE, NON-TENDER, NO THYROMEGALY, NO MASSES, NO JVD, NO BRUITS BREAST:DEFERRED CHEST:NO TENDERNESS, NO CREPITUS, NO PARADOXICAL MOVEMENT, NO RETRACTIONS LUNGS:CLEAR, WELL-VENTILATED, SYMMETRIC, NO RALES, NO WHEEZING, NO RHONCHI, NO STRIDOR, GOOD BREATH SOUNDS BILATERALLY HEART: REGULAR RATE, REGULAR RHYTHM, NO MURMUR, NO GALLOPS VASCULAR: NO PERIPHERAL EDEMA, ABDOMEN: SOFT, POSITIVE BOWEL SOUNDS, NONDISTENDED, NO GUARDING, NONTENDER, NO REBOUND, NO MASSES NO HEPATOMEGALY, NO SPLENOMEGALY, NO MORGAN'S SIGN, NO HERNIAS. RECTAL: DEFERRED GENITAL: DEFERRED NEUROLOGICAL: NORMAL SPEECH, MOTOR FUNCTION INTACT, SENSORY FUNCTION INTACT MUSCULOSKELETAL: NECK NONTENDER, FULL RANGE OF MOTION, BACK NONTENDER, FULL RANGE OF MOTION, EXTREMITIES: TENDERNESS TO LEFT POSTERIOR ELBOW/LEFT LATERAL KNEE, PALMAR HAND. FULL RANGE OF MOTION NOTED ALL EXTREMITIES SKIN: COLOR PINK, ABRASIONS TO LEFT POSTERIOR ELBOW AND LEFT LATERAL KNEE. LYMPHATIC: DEFERRED Results (Laboratory/Radiology) Laboratory/Radiology LEFT SHOULDER X-RAY NEGATIVE LEFT ELBOW NEGATIVE, NO POSTERIOR FAT PAD SIGN LEFT HAND X-RAY NEGATIVE LEFT KNEE X-RAY NEGATIVE EXCEPT FOR DEGENERATIVE CHANGES Labs Reviewed?: Yes ED Course ED Course Orders Procedure Category Date Status Time Elbow Comp 3+Vws Lt RAD 03/01/25 Taken 20:28 Knee 3vws Lt RAD 03/01/25 Taken 20:28 Hand 3+Vws Lt RAD 03/01/25 Taken 20:28 Neomy PHA 03/01/25 Complete Sulf/Bacitra/Polymyxin 20:30 Acetaminophen With PHA 03/01/25 Complete Codeine (Tylenol-Code 20:30 Tetanus,Diphtheria PHA 03/01/25 Complete Tox [Adult] (Diphther 20:30 Shoulder Comp 2+Vws Lt RAD 03/01/25 Taken 21:03 Current Medications Medications (Trade) Dose Ordered Sig/Romy Route PRN Reason Start Time Stop Time Status Last Admin Dose Admin Acetaminophen/ Codeine Phosphate (TYLenol-coDEINE TAB) 2 tab ONCE ONCE PO 03/01/25 20:30 03/01/25 20:32 DC 03/01/25 20:50 Neomycin/ Polymyxin/ Bacitracin (Triple Antibiotic Ointment) 1 appl ONCE ONCE TP 03/01/25 20:30 03/01/25 20:32 DC 03/01/25 21:05 Tetanus/ Diphtheria Toxoids Adsorbed (DiphthERIA-teTANUS TOXOID [ADULT]/ DECAVAC) 0.5 ml ONCE ONCE IM 03/01/25 20:30 03/01/25 20:32 DC 03/01/25 20:51 Vital Signs Date Time Temp Pulse Resp B/P (MAP) Pulse Ox O2 Delivery O2 Flow Rate FiO2 03/01/25 20:16 98.1 69 20 164/66 97 Room Air 2145/X-RAYS OF LEFT SHOULDER ELBOW LEFT HAND AND LEFT KNEE ON NEGATIVE EXCEPT FOR DEGENERATIVE CHANGES ONLY. PATIENT DISCHARGED HOME TO FOLLOW UP WITH YOUR PRIMARY CARE DOCTOR NEXT 1-2 DAYS NEUROVASCULAR CMS INTACT TO ALL EXTREMITIES Medical Decision Making MDM MDM: DIFFERENTIAL DIAGNOSIS: SHOULDER DISLOCATION/FRACTURE/ELBOW FRACTURE/HAND FRACTURE/CONTUSION/KNEE CONTUSION/ABRASION RATIONALE: TESTS CONSIDERED AND ORDERED SECONDARY TO SHARED DECISION MAKING INCLUDE: X-RAYS PREVIOUS OUTSIDE RECORDS REVIEWED: OLD ER VISITS. RISK OF COMPLICATION AND/OR MORBIDITY OR MORTALITY OF PATIENT MANAGEMENT: NONE MEDICATIONS-PER MEDICATION RECONCILIATION NEED FOR HOSPITALIZATION: PATIENT DOES NOT MEET CRITERIA FOR HOSPITALIZATION. NONE NEED FOR EMERGENCY MAJOR/MINOR SURGERY: NO THERE ARE NO SOCIAL CONCERNS WITH THIS PATIENT. PRESCRIPTION DRUG MANAGEMENT TYLENOL NO. PRESCRIPTIONS WILL INCLUDE SYMPTOMATIC CARE PATIENT'S PRIOR EXTERNAL MEDICAL RECORDS FROM OTHER ER VISITS WERE REVIEWED BY ME INDICATED. PRIOR TESTING AND RESULTS FROM PREVIOUS VISITS WERE REVIEWED. PRIOR TESTS WERE TAKEN INTO ACCOUNT WITH MEDICAL DECISION MAKING AND RESOURCE UTILIZATION, INDEPENDENT HISTORIAN/HISTORIANS WERE USED TO OBTAIN COMPLETE MEDICAL HISTORY. I INDEPENDENTLY INTERPRETED THE TEST THAT WERE PERFORMED, RESULTS WERE REVIEWED BY ME AND CONSIDERED FINDINGS ON RADIOLOGY IF ORDERED. MEDICAL MANAGEMENT AND EXAMINATION INTERPRETATION DISCUSSIONS WERE HAD BY ME WITH OTHER QUALIFIED HEALTHCARE PROFESSIONALS INDICATED FOR THE PATIENT'S CARE. DX & DISP Disposition: Discharge Departure Impression: Primary Impression: Contusion of left shoulder, initial encounter Additional Impressions: Contusion of left elbow, initial encounter, Contusion of left hand, initial encounter, Contusion of left knee, initial encounter, Multiple abrasions, Fall Condition: Stable Scripts Acetaminophen with Codeine (Acetaminophen-Cod #3 Tablet) 300 Mg-30 Mg Tablet 1 TAB PO Q4H PRN for MODERATE TO SEVERE PAIN, #10 TAB 0 Refills Prov: COLETTE KELLOGG 03/01/25 Additional Instructions: Follow-up with primary care provider in 1 to 2 days. Take medications as directed here in the emergency room. Okay to continue home medications unless otherwise discussed during your visit in the emergency room today. Return to your nearest emergency room if symptoms worsen or if there is no improvement. Call 911 if you need immediate assistance. Take Tylenol or Motrin [id number] as needed and if no contraindications are present. Increase oral hydration. A wound culture or urine culture was ordered here in the emergency room department please follow-up with primary care provider and advise them to get repeat ports from our facility. If you had any Roland wrap/splints that were applied here, please do not remove them until you see your primary care or specialty. Cool compresses to pain three to 4 times a day. Apply bacitracin/[id number] twice a day to abrasions for five days with Band- Aids. Take Tylenol with codeine for severe pain , take ibuprofen or plain Tylenol for mild pain See your primary care doctor for follow up Referrals: EMILY LEIGH DO (PCP) Time of Disposition: 21:49 I have reviewed the case, and I agree with, Diagnosis and Plan COLETTE KELLOGG Mar 01, 2025 20:32
--- NOTE | 2025-03-01 20:57 | NUR ---
ABRASIONS TO L ELBOW AND KNEE CLEANED WITH SKIN CLEANSER, HALLIE APPLIED, COVERED WITH NONADHERENT GAUZE WRAPPED WITH KERLIX
[2025-03-01] MEDS: NEOMY SULF/BACITRA/POLYMYXIN B 1 EACH PACKET TP ONE (21:05)
[2025-03-01] MEDS ORDERED: ACET-2079 PO (21:52)
--- NOTE | 2025-03-01 23:34 | HMCIMG ---
EXAM: CR right Shoulder, 2 View. CLINICAL HISTORY: FALL INJURY COMPARISON: None provided. FINDINGS: BONES: No acute fracture or aggressive appearing osseous lesion. JOINTS: No dislocation. The joint spaces are normal. SOFT TISSUES: The soft tissues are unremarkable. IMPRESSION: No acute abnormality evident on examination of the right shoulder. No acute fracture or dislocation. /[place]
--- NOTE | 2025-03-01 23:36 | HMCIMG ---
EXAM: CR right elbow, 3 View. CLINICAL HISTORY: LEFT ELBOW PAIN WITH A ABRASION STATUS POST FALL COMPARISON: None provided. FINDINGS: BONES: No acute fracture or aggressive appearing osseous lesion. JOINTS: The joint spaces appear within normal limits. No dislocation. No radiographic evidence of a joint effusion. SOFT TISSUES: The soft tissues are unremarkable. IMPRESSION: No acute osseous abnormality. /[place]
--- NOTE | 2025-03-01 23:36 | HMCIMG ---
EXAM: CR right Knee, 3 View. CLINICAL HISTORY: LEFT KNEE PAIN WITH A ABRASION STATUS POST FALL COMPARISON: None provided. FINDINGS: BONES: No acute fracture or aggressive appearing osseous lesion. JOINTS: The joint spaces show no significant degenerative disease. There is no joint effusion appreciated. SOFT TISSUES: The soft tissues are unremarkable. IMPRESSION: No acute osseous pathology evident. /[place]
--- NOTE | 2025-03-01 23:36 | HMCIMG ---
EXAM: CR right Hand, 3 View. CLINICAL HISTORY: LEFT PALMAR PAIN STATUS POST FALL COMPARISON: None provided. FINDINGS: BONES: No acute fracture or aggressive appearing osseous lesion. JOINTS: No evidence of dislocation. The joint spaces are normal. SOFT TISSUES: The soft tissues appear within normal limits. No radiopaque foreign body is seen. IMPRESSION: No acute pathology evident. No acute fracture or dislocation. /[place]
== END 2025-03-01 22:01 | disposition home or self-care (01) ==
LOC: EDH 20:14
DX: S40.012A Contusion of left shoulder, initial encounter (principal); S50.02XA Contusion of left elbow, initial encounter; S60.222A Contusion of left hand, initial encounter; S80.02XA Contusion of left knee, initial encounter; S80.211A Abrasion, right knee, initial encounter; F17.200 Nicotine dependence, unspecified, uncomplicated; F31.9 Bipolar disorder, unspecified; Z79.1 Long term (current) use of non-steroidal anti-inflammatories (NSAID); Z79.899 Other long term (current) drug therapy; Z88.8 Allergy status to other drugs, medicaments and biological substances; W01.0XXA Fall on same level from slipping, tripping and stumbling without subsequent striking against object, initial encounter; Y93.89 Activity, other specified; Y92.89 Other specified places as the place of occurrence of the external cause; Y99.8 Other external cause status
CPT/HCPCS: 73030; 73080; 73130; 73562; 90471; 90714; 99284